=== PATIENT | female | born 2000 | race Caucasian/White ===

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

== ENCOUNTER 2023-12-18 11:43 | Outpatient (AMB) | payer BC, SELFPAY ==
--- NOTE | 2023-12-18 12:51 | MHC.OFFWIV ---
Intake Vital Signs 12/18/23 12:52 Height 5 ft 1 in Weight 157 lb BMI 29.7 BP 102/70 Blood Pressure Location Lt brachial Position Sitting Pulse 91 Pulse Source Pulse Oximeter Temp 98.8 F Temp Source Oral Pulse Oximetry (%) 98 Oxygen Delivery Method Room Air Intake Visit Reasons: [employer]/right shoulder pain (lobby) Intake Note: Pt is here today c/o Rt shoulder pain: due to lifting something a work 12/14/23 Allergies amoxicillin Adverse Reaction (Verified 12/18/23 13:44) upset stomach HPI [employer]ER/right shoulder pain (lobby) HPI Details Patient is a 23-year-old female who comes to the walk-in clinic complaining of acute right shoulder area pain. She states that she had done some heavy lifting at work before symptoms started. She gives history of neurofibromatosis and states that musculoskeletal things seem to affect her more prominently due to this. She reports increased pain to the back of her shoulder with use of the right arm at times. No report of numbness or tingling or weakness. Review of Systems Const All systems reviewed & are unremarkable except as noted in HPI and below Physical Exam Vital Signs: Last Vital Signs Temp 98.8 F 12/18/23 12:52 Pulse 91 12/18/23 12:52 BP 102/70 12/18/23 12:52 Pulse Ox 98 12/18/23 12:52 Oxygen Delivery Method Room Air 12/18/23 12:52 BMI result Body Mass Index 29.7 Const General: cooperative, healthy appearing, comfortable, alert, awake, Physically active and well groomed; No acute distress, anxious, diaphoretic, ill appearing, intoxicated appearing, poor hygiene or tired appearing Nutritional Appearance: average body habitus Limitations: no limitations Resp Effort & Inspection: normal respiratory effort Cardio Rate: regular rate Psych Appearance: grossly normal Mental Status: mental status grossly normal Speech and movement: Normal speech and movement present Affect: normal affect Attitude: cooperative Thought process: Normal thought process present Insight: Good insight present (Psych) Judgement: Good judgement present (Psych) Assessment & Plan Assessment & Plan (1) Back muscle spasm: Code(s): M62.830 - Muscle spasm of back Plan: Patient with periscapular spasm over the right thoracic paraspinal muscle. It seems to be a muscle spasm in nature, and we discussed anti-inflammatory use as well as a muscle relaxer, especially for nighttime if needed to help facilitate sleep. She also should heat regularly with gentle stretching and massage advised. Plain film x-ray not done as she had no bony tenderness and no fall or mechanism of injury associated with osseous trauma. She should follow up if symptoms persist however, and consider x-ray at that time, or MRI if it is indicated. Medications: New cyclobenzaprine 5 mg PO TID PRN 14 tabs 0RF muscle spasm naproxen 500 mg PO BID 14 days PRN 28 tabs 0RF pain Coding Level of Care Code New Pt Level 4 (32364) Diagnoses Back muscle spasm M62.830
[2023-12-18 12:52] VITALS: BP 102/70; PULSE 91; TEMP 37.1; O2SAT 98; BMI 29.7
== END 2023-12-18 14:10 | disposition home or self-care (01) ==
PROVIDERS: Visit Provider Physician Assistant Medical
DX: M62.830 Muscle spasm of back (principal)
CPT/HCPCS: 99204